=== PATIENT | male | born 1940 | race Caucasian/White ===

== ENCOUNTER 2016-07-26 19:57 | Emergency (ER) | payer OTHER ==
--- NOTE | 2016-07-26 21:37 | DIAGNOSTIC IMAGING REPORT ---
PROCEDURE: XR KNEE 3 VIEWS - LEFT INDICATION: PAIN TECHNIQUE: Three views. COMPARISON: None. FINDINGS: There are mild to moderate degenerative changes and joint space narrowing in the medial compartment and left patellofemoral joint. Osseous structures and joint spaces are otherwise normal. There are moderate calcified atheromatous changes of the left popliteal artery. IMPRESSION: 1. Mild to moderate degenerative changes of the left knee. 2. Moderate calcified atheromatous changes of the left popliteal artery.
--- NOTE | 2016-07-26 21:40 | ED ORDER SUMMARY ---
..... Patient: DIANDRA QURESHI OrderSheet [facility] VisitID: [id number] [address] [place] [address] 76y, M Registration Date/Time: 07/26/2016 ORDER SHEET Weight: 86.1 kg (stated) Allergies: No Known Drug Allergy GENERAL ORDERS: Knee 3V Left Urgent (20:28 07/26/2016 Jarod Hardin verbal order read back to Rachelle Chavez) (Ack 20:36 Navneet) (21:04 Jarrell) MEDICATION ORDERS: Hydrocodone-APAP PO 5/325 mg (NOW, HIGH ALERT MEDICATION) (20:37 07/26/2016 Rachelle Chavez) (Ack 20:44 Jessi Hardin) IV FLUIDS: ORDER SHEET NOTES: [Electronically signed by Nicholas Luque R.N. (21:58 07/26/2016)] [Electronically signed by Rocío Ferrell P.A.-C (23:02 07/26/2016)] [Electronically locked/signed by Nicholas Luque R.N. (21:58 07/26/2016)]
--- NOTE | 2016-07-26 21:40 | ED CLINICAL REPORT ---
Clinical Report - Physicians/Mid Levels [facility] [address] [place] [address] 07/26/2016 19:59 Patient: DIANDRA QURESHI Arrived- By private vehicle. Historian- patient. HISTORY OF PRESENT ILLNESS Chief Complaint: Chief Complaint- Left knee pain. The injury happened 3 days. Patient is experiencing mild pain. Patient denies injury to the head. (Patient with left knee pain over the last 3 days. Patient denies history of DVT. Reports history of gout. He denies any injury history to the area. Patient denies any swelling or erythema. Denies any recent fevers or chills. Pain worsens with movement and activity.). REVIEW OF SYSTEMS The patient complains of pain on weight bearing. All systems otherwise negative, except as recorded above. SOCIAL HISTORY Former smoker. No alcohol use or drug use. PHYSICAL EXAM Appearance: Alert. No acute distress. but apparent distress. Head: Head atraumatic. ENT: Ears normal. Nose normal. Neck: Normal inspection. Respiratory: No respiratory distress. Breath sounds normal. No decreased air movement. Skin: Skin warm. Extremities: Left thigh. No tenderness. Left knee: mild tenderness located in the medial joint line. No swelling, ecchymosis or foreign body. Left leg. No swelling. Neuro, Vascular and Tendons: Vascular status intact. Motor intact. Gait: Limping gait. Neuro: Oriented X 3. LABS, X-RAYS, AND EKG Lt Knee X-ray: (IMPRESSION: 1. Mild to moderate degenerative changes of the left knee. 2. Moderate calcified atheromatous changes of the left popliteal artery. Electronically Final signed by:Kalia Alonzo MD 07/26/2016 9:32:56 PM). PROGRESS AND PROCEDURES Course of Care: There is no warmth or erythema. Patient with no history of trauma. This may represent gout. Patient taking anti-inflammatories, we'll give pain medications as needed, and patient to otherwise follow-up. AAt this time I do not believe this is a DVT, as pain is reproducible and is on the medial aspect, may represent arthritis, in the setting of gouty arthralgia. 07/26/2016 21:53 BP: 131/81. HR: 58. RR: 16. O2 saturation: 97%. Pain level now: 4/10. Patient is stable. Symptoms better. Patient/family counseled. Disposition: Discharged. Condition: good. CLINICAL IMPRESSION Acute arthritis of the right knee. INSTRUCTIONS Apply ice. Elevate affected areas above chest level. You may walk and bear weight as tolerated. Prescription Medications: Hydrocodone/APAP 5mg / 325mg: take 1 orally every 6 hours as needed for pain. Dispense ten (10). No refill. [facility] with: [facility], , [address] [facility] [address] Follow up. Call for the next available appointment. (Electronically signed by Rocío Ferrell P.A.-C 07/26/2016 23:02)
--- NOTE | 2016-07-26 21:40 | ED ORDER SUMMARY ---
..... Patient: DIANDRA QURESHI OrderSheet [facility] VisitID: [id number] [address] [place] [address] 76y, M Registration Date/Time: 07/26/2016 ORDER SHEET Weight: 86.1 kg (stated) Allergies: No Known Drug Allergy GENERAL ORDERS: Knee 3V Left Urgent (20:28 07/26/2016 Jarod Hardin verbal order read back to Rachelle Chavez) (Ack 20:36 Navneet) (21:04 Jarrell) MEDICATION ORDERS: Hydrocodone-APAP PO 5/325 mg (NOW, HIGH ALERT MEDICATION) (20:37 07/26/2016 Rachelle Chavez) (Ack 20:44 Jessi Hardin) IV FLUIDS: ORDER SHEET NOTES: [Electronically signed by Nicholas Luque R.N. (21:58 07/26/2016)] [Electronically signed by Rocío Ferrell P.A.-C (23:02 07/26/2016)] [Electronically locked/signed by Nicholas Luque R.N. (21:58 07/26/2016)]
--- NOTE | 2016-07-26 21:40 | ED NURSING NOTES ---
Clinical Report - Nurses [facility] [address] [place] [address] 07/26/2016 19:59 [id number] Triage time 20:Jul 26 2016. Acuity: LEVEL 3. Chief Complaint: LEFT LOWER EXTREMITY PAIN and SWELLING. Location of symptoms- left knee. Alert. MELO COMA SCORE: [place] Coma Scale: 15- eyes open spontaneously (4); best verbal response- oriented x 4 (5); best motor response- obeys commands (6). --20:25 Nicholas Wilson R.N. 20:09 07/26/16. BP: 165/87. HR: 71. RR: 16. O2 saturation: 98%. Temp: 97.4 F. Pain level now: 06/07. --20:25 Nicholas Wilson R.N. Weight: 86.1 kg stated. Height/Length: 71 inches Per Patient. BMI: 26.5. --20:23 Nicholas Wilson R.N. Medications Isorbide Mononitrate 30 mg. --20:18 Nicholas Wilson R.N. AmLODIPine Besylate Oral. --20:19 Nicholas Wilson R.N. Plavix Oral 75 mg, daily. --20:19 Nicholas Wilson R.N. Atorvastatin Calcium Oral 20 mg. --20:20 Nicholas Wilson R.N. Metoprolol Tartrate Oral 50 mg. --20:21 Nicholas Wilson R.N. Omeprazole Oral 20 mg. --20:21 Nicholas Wilson R.N. Naproxen Oral 500 mg, daily. --20:22 iNcholas Wilson R.N. Allergies No Known Drug Allergy. --20:14 Nicholas Wilson R.N. History Arrived by private vehicle. Historian: patient. Accompanied by friend. Primary physician (Jessica Mccullough). ( (L) Knee Pain. Pt denies any recent trauma to that knee, but states that it had started hurting more in the last two days.). No injury occurred. This occurred (about 3 days ago). Provoking / relieving factors: worsened by sitting; relieved by walking. 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 Symptoms did not improve after treatment. (and took all his usual medications). SOCIAL HX: Former smoker, end date 2001. No alcohol use or drug use. No infectious disease exposure. ABUSE ASSESSMENT: No report of abuse. FALL RISK ASSESSMENT: Fall risk assessment completed. No fall risk identified. NUTRITIONAL RISK ASSESSMENT: The nutritional risk assessment revealed no deficiencies. FUNCTIONAL ASSESSMENT: Functional assessment performed: uses cane- this mobility impairment is an ongoing problem. LEARNING NEEDS ASSESSMENT: (slightly [place]). --20:25 Nicholas Wilson R.N. PROBLEMS: Hypertension. Hypercholesterolemia. CAD. --20:23 Nicholas Wilson R.N. ADDITIONAL SURGERIES: Coronary Stents placed. --20:23 Nicholas Wilson R.N. Interventions ID band on patient. To treatment room. --20:25 Nicholas Wilson R.N. PHYSICAL ASSESSMENT GENERAL / NEURO / PSYCH: Oriented X 4. Alert. EXTREMITIES: Limited ROM present in the left knee. Neuro-vascular status intact to the extremity. No lower extremity edema. Left knee: tenderness and swelling (very tender point on the lateral and distal part of the knee). SKIN: Skin intact. Skin is warm and dry. --20:27 Nicholas Wilson R.N. NURSING PROGRESS NOTES Reassurance given to the patient and patient's friends. Patient identifiers checked. Call light placed in reach. Side rails up x 1. Bed placed in lowest position. Brakes of bed on. Patient ready for evaluation- chart flagged and ED physician notified. --20:28 Nicholas Wilson R.N. 21:55. The patient is calm and resting quietly. GENERAL / NEURO / PSYCH: Alert. Oriented X 4. RESPIRATORY: No respiratory distress. EXTREMITIES: Neuro-vascular status intact to the extremities. SKIN: Skin is warm and dry. --21:58 Nicholas Luque R.N. DISPOSITION / DISCHARGE Departure time: 21:57. Condition at departure: stable. No learning barriers present. Discharge instructions provided and reviewed with the patient. Reviewed medication(s) side effects, precautions, dosing and course information. Prescription(s) given to the patient. Patient verbalized understanding. Written instructions provided in [place]. The patient was discharged home and accompanied by laborer gold leaf. He left the Emergency Department ambulatory and via private vehicle. Grinder Tender driving. FALL RISK ASSESSMENT: Fall risk assessment completed. No fall risk identified. --21:57 Nicholas Luque R.N. 21:53 07/26/16. BP: 131/81. HR: 58. RR: 16. O2 saturation: 97% on room air. Pain level now: 06/07. --21:57 Nicholas Luque R.N. Locked/Released at 07/26/2016 21:58 by Nicholas Luque R.N.
--- NOTE | 2016-07-26 21:40 | ED CLINICAL REPORT ---
Clinical Report - Physicians/Mid Levels [facility] [address] [place] [address] 07/26/2016 19:59 Patient: DIANDRA QURESHI Arrived- By private vehicle. Historian- patient. HISTORY OF PRESENT ILLNESS Chief Complaint: Chief Complaint- Left knee pain. The injury happened 3 days. Patient is experiencing mild pain. Patient denies injury to the head. (Patient with left knee pain over the last 3 days. Patient denies history of DVT. Reports history of gout. He denies any injury history to the area. Patient denies any swelling or erythema. Denies any recent fevers or chills. Pain worsens with movement and activity.). REVIEW OF SYSTEMS The patient complains of pain on weight bearing. All systems otherwise negative, except as recorded above. SOCIAL HISTORY Former smoker. No alcohol use or drug use. PHYSICAL EXAM Appearance: Alert. No acute distress. but apparent distress. Head: Head atraumatic. ENT: Ears normal. Nose normal. Neck: Normal inspection. Respiratory: No respiratory distress. Breath sounds normal. No decreased air movement. Skin: Skin warm. Extremities: Left thigh. No tenderness. Left knee: mild tenderness located in the medial joint line. No swelling, ecchymosis or foreign body. Left leg. No swelling. Neuro, Vascular and Tendons: Vascular status intact. Motor intact. Gait: Limping gait. Neuro: Oriented X 3. LABS, X-RAYS, AND EKG Lt Knee X-ray: (IMPRESSION: 1. Mild to moderate degenerative changes of the left knee. 2. Moderate calcified atheromatous changes of the left popliteal artery. Electronically Final signed by:Kalia Alonzo MD 07/26/2016 9:32:56 PM). PROGRESS AND PROCEDURES Course of Care: There is no warmth or erythema. Patient with no history of trauma. This may represent gout. Patient taking anti-inflammatories, we'll give pain medications as needed, and patient to otherwise follow-up. AAt this time I do not believe this is a DVT, as pain is reproducible and is on the medial aspect, may represent arthritis, in the setting of gouty arthralgia. 07/26/2016 21:53 BP: 131/81. HR: 58. RR: 16. O2 saturation: 97%. Pain level now: 4/10. Patient is stable. Symptoms better. Patient/family counseled. Disposition: Discharged. Condition: good. CLINICAL IMPRESSION Acute arthritis of the right knee. INSTRUCTIONS Apply ice. Elevate affected areas above chest level. You may walk and bear weight as tolerated. Prescription Medications: Hydrocodone/APAP 5mg / 325mg: take 1 orally every 6 hours as needed for pain. Dispense ten (10). No refill. [facility]-up with: [facility], , [address] [facility] [id number] Follow up. Call for the next available appointment. (Electronically signed by Rocío Ferrell P.A.-C 07/26/2016 23:02)
--- NOTE | 2016-07-26 21:40 | ED NURSING NOTES ---
Clinical Report - Nurses [facility] [address] [place] [place] [address] 07/26/2016 19:59 [id number] Triage time 20:Jul 26 2016. Acuity: LEVEL 3. Chief Complaint: LEFT LOWER EXTREMITY PAIN and SWELLING. Location of symptoms- left knee. Alert. MELO COMA SCORE: [place] Coma Scale: 15- eyes open spontaneously (4); best verbal response- oriented x 4 (5); best motor response- obeys commands (6). --20:25 Nicholas Wilson R.N. 20:09 07/26/16. BP: 165/87. HR: 71. RR: 16. O2 saturation: 98%. Temp: 97.4 F. Pain level now: 06/07. --20:25 Nicholas Wilson R.N. Weight: 86.1 kg stated. Height/Length: 71 inches Per Patient. BMI: 26.5. --20:23 Nicholas Wilson R.N. Medications Isorbide Mononitrate 30 mg. --20:18 Nicholas Wilson R.N. AmLODIPine Besylate Oral. --20:19 Nicholas Wilson R.N. Plavix Oral 75 mg, daily. --20:19 Nicholas Wilson R.N. Atorvastatin Calcium Oral 20 mg. --20:20 Nicholas Wilson R.N. Metoprolol Tartrate Oral 50 mg. --20:21 Nicholas Wilson R.N. Omeprazole Oral 20 mg. --20:21 Nicholas Wilson R.N. Naproxen Oral 500 mg, daily. --20:22 Nicholas Wilson R.N. Allergies No Known Drug Allergy. --20:14 Nicholas Wilson R.N. History Arrived by private vehicle. Historian: patient. Accompanied by friend. Primary physician (Jessica Mccullough). ( (L) Knee Pain. Pt denies any recent trauma to that knee, but states that it had started hurting more in the last two days.). No injury occurred. This occurred (about 3 days ago). Provoking / relieving factors: worsened by sitting; relieved by walking. 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 Symptoms did not improve after treatment. (and took all his usual medications). SOCIAL HX: Former smoker, end date 2001. No alcohol use or drug use. No infectious disease exposure. ABUSE ASSESSMENT: No report of abuse. FALL RISK ASSESSMENT: Fall risk assessment completed. No fall risk identified. NUTRITIONAL RISK ASSESSMENT: The nutritional risk assessment revealed no deficiencies. FUNCTIONAL ASSESSMENT: Functional assessment performed: uses cane- this mobility impairment is an ongoing problem. LEARNING NEEDS ASSESSMENT: (slightly [place]). --20:25 Nicholas Wilson R.N. PROBLEMS: Hypertension. Hypercholesterolemia. CAD. --20:23 Nicholas Wilson R.N. ADDITIONAL SURGERIES: Coronary Stents placed. --20:23 Nicholas Wilson R.N. Interventions ID band on patient. To treatment room. --20:25 Nicholas Wilson R.N. PHYSICAL ASSESSMENT GENERAL / NEURO / PSYCH: Oriented X 4. Alert. EXTREMITIES: Limited ROM present in the left knee. Neuro-vascular status intact to the extremity. No lower extremity edema. Left knee: tenderness and swelling (very tender point on the lateral and distal part of the knee). SKIN: Skin intact. Skin is warm and dry. --20:27 Nicholas Wilson R.N. NURSING PROGRESS NOTES Reassurance given to the patient and patient's friends. Patient identifiers checked. Call light placed in reach. Side rails up x 1. Bed placed in lowest position. Brakes of bed on. Patient ready for evaluation- chart flagged and ED physician notified. --20:28 Nicholas Wilson R.N. 21:55. The patient is calm and resting quietly. GENERAL / NEURO / PSYCH: Alert. Oriented X 4. RESPIRATORY: No respiratory distress. EXTREMITIES: Neuro-vascular status intact to the extremities. SKIN: Skin is warm and dry. --21:58 Nicholas Luque R.N. DISPOSITION / DISCHARGE Departure time: 21:57. Condition at departure: stable. No learning barriers present. Discharge instructions provided and reviewed with the patient. Reviewed medication(s) side effects, precautions, dosing and course information. Prescription(s) given to the patient. Patient verbalized understanding. Written instructions provided in [place]. The patient was discharged home and accompanied by urology physician. He left the Emergency Department ambulatory and via private vehicle. Care Worker driving. FALL RISK ASSESSMENT: Fall risk assessment completed. No fall risk identified. --21:57 Nicholas Luque R.N. 21:53 07/26/16. BP: 131/81. HR: 58. RR: 16. O2 saturation: 97% on room air. Pain level now: 06/07. --21:57 Nicholas Luque R.N. Locked/Released at 07/26/2016 21:58 by Nicholas Luque R.N.
--- NOTE | 2016-07-26 23:02 | ED MED RECONCILIATION SUMMARY ---
Patient: DIANDRA QURESHI Medication Reconciliation Report [facility] VisitID: [id number] [address] [place] [address] 76y, M Registration Date/Time: 07/26/2016 Weight: 86.1 kg Height/Length: 71 in. BMI: 26.5 ALLERGIES: No Known Drug Allergy The patient's Home Medications are listed below: THE FOLLOWING MEDICATIONS NEED TO BE RECONCILED: AmLODIPine Besylate Oral Atorvastatin Calcium Oral 20 mg Isorbide Mononitrate 30 mg Metoprolol Tartrate Oral 50 mg Naproxen Oral 500 mg, daily Omeprazole Oral 20 mg Plavix Oral 75 mg, daily The source(s) of the original Home Medication information: Not obtained. The following Medications were given to the patient in the Emergency Department: Hydrocodone-APAP [PO] PO 1 tab, administered: 07/26/2016 8:55:00 PM The following Medications were prescribed to the patient: Hydrocodone/APAP 5mg / 325mg: take 1 orally every 6 hours as needed for pain. Dispense ten (10). No refill. -- Rocío Ferrell PMiguelangelALubaC
--- NOTE | 2016-07-26 23:02 | ED MED RECONCILIATION SUMMARY ---
Patient: DIANDRA QURESHI Medication Reconciliation Report [facility] VisitID: [id number] [address] [place] [address] 76y, M Registration Date/Time: 07/26/2016 Weight: 86.1 kg Height/Length: 71 in. BMI: 26.5 ALLERGIES: No Known Drug Allergy The patient's Home Medications are listed below: THE FOLLOWING MEDICATIONS NEED TO BE RECONCILED: AmLODIPine Besylate Oral Atorvastatin Calcium Oral 20 mg Isorbide Mononitrate 30 mg Metoprolol Tartrate Oral 50 mg Naproxen Oral 500 mg, daily Omeprazole Oral 20 mg Plavix Oral 75 mg, daily The source(s) of the original Home Medication information: Not obtained. The following Medications were given to the patient in the Emergency Department: Hydrocodone-APAP [PO] PO 1 tab, administered: 07/26/2016 8:55:00 PM The following Medications were prescribed to the patient: Hydrocodone/APAP 5mg / 325mg: take 1 orally every 6 hours as needed for pain. Dispense ten (10). No refill. -- Rocío Ferrell PMiguelangelALubaC
--- NOTE | 2016-07-26 23:02 | ED DISCHARGE INSTRUCTIONS ---
Patient: DIANDRA QURESHI General Instructions [facility] VisitID: [id number] [address] [place], [place] [id number] 76y, M Registration Date/Time: 07/26/2016 Acute arthritis of the right knee. INSTRUCTIONS Apply ice. Elevate affected areas above chest level. You may walk and bear weight as tolerated. Prescription Medications: Hydrocodone/APAP 5mg / 325mg: take 1 orally every 6 hours as needed for pain. Dispense ten (10). No refill. Follow-up with: [facility], , [address], [place], [id number] Follow up. Call for the next available appointment. ADDITIONAL INFORMATION Arthralgia Arthralgia is the term for pain in or around the joint. It is not a disease but a symptom. This may involve one or more joints. Sometimes arthralgias move from joint to joint. There are many causes for joint pain. These include: Injury Osteoarthritis (from wearing out of the joint surface) Rheumatoid arthritis (an autoimmune disease) Gout (inflammation of the joint due to crystals in the joint fluid) Infection inside the joint Bursitis (inflammation of the fluid-filled sacs around the joint) Lupus and other collagen-vascular disease Home Care: Rest the involved joint(s) until your symptoms improve. You may use acetaminophen (Tylenol) or ibuprofen (Motrin, Advil) to control pain, unless another pain medicine was prescribed. [NOTE: If you have chronic liver or kidney disease or ever had a stomach ulcer or GI bleeding, talk with your doctor before using these medicines.] Follow Up with your doctor or as advised by our staff. [NOTE: If you had an X-ray it will be reviewed by a specialist. You will be notified of any new findings that may affect your care.] Return Promptly or contact your doctor if any of the following occurs: Pain increases Pain moves to other joints New rash appears Fever of 100.4F (38C) or higher, or as directed by your healthcare provider Hydrocodone Bitartrate, Acetaminophen Oral tablet What is this medicine? ACETAMINOPHEN; HYDROCODONE (a set a SRIKANTH laine fen; roly droe KOE done) is a pain reliever. It is used to treat mild to moderate pain. How should I use this medicine? Take this medicine by mouth. Swallow it with a full glass of water. Follow the directions on the prescription label. If the medicine upsets your stomach, take the medicine with food or milk. Do not take more than you are told to take. Talk to your mule spinner regarding the use of this medicine in children. This medicine is not approved for use in children. What side effects may I notice from receiving this medicine? Side effects that you should report to your doctor or health customer care manager as soon as possible: allergic reactions like skin rash, itching or hives, swelling of the face, lips, or tongue breathing problems confusion feeling faint or lightheaded, falls stomach pain yellowing of the eyes or skin Side effects that usually do not require medical attention (report to your doctor or health customer care manager if they continue or are bothersome): nausea, vomiting stomach upset What may interact with this medicine? alcohol antihistamines isoniazid medicines for depression, anxiety, or psychotic disturbances medicines for sleep muscle relaxants naltrexone narcotic medicines (opiates) for pain phenobarbital ritonavir tramadol What if I miss a dose? If you miss a dose, take it as soon as you can. If it is almost time for your next dose, take only that dose. Do not take double or extra doses. Where should I keep my medicine? Keep out of the reach of children. This medicine can be abused. Keep your medicine in a safe place to protect it from theft. Do not share this medicine with anyone. Selling or giving away this medicine is dangerous and against the law. Store at room temperature between 15 and 30 degrees C (59 and 86 degrees F). Protect from light. Keep container tightly closed. Throw away any unused medicine after the expiration date. Discard unused medicine and used packaging carefully. Pets and children can be harmed if they find used or lost packages. What should I tell my health care provider before I take this medicine? They need to know if you have any of these conditions: brain tumor Crohn's disease, inflammatory bowel disease, or ulcerative colitis drink more than 3 alcohol-containing drinks per day drug abuse or addiction head injury heart or circulation problems kidney disease or problems going to the bathroom liver disease lung disease, asthma, or breathing problems an unusual or allergic reaction to acetaminophen, hydrocodone, other opioid analgesics, other medicines, foods, dyes, or preservatives or trying to get breast-feeding What should I watch for while using this medicine? Tell your doctor or health customer care manager if your pain does not go away, if it gets worse, or if you have new or a different type of pain. You may develop tolerance to the medicine. Tolerance means that you will need a higher dose of the medicine for pain relief. Tolerance is normal and is expected if you take the medicine for a long time. Do not suddenly stop taking your medicine because you may develop a severe reaction. Your body becomes used to the medicine. This does NOT mean you are addicted. Addiction is a behavior related to getting and using a drug for a non-medical reason. If you have pain, you have a medical reason to take pain medicine. Your doctor will tell you how much medicine to take. If your doctor wants you to stop the medicine, the dose will be slowly lowered over time to avoid any side effects. You may get drowsy or dizzy when you first start taking the medicine or change doses. Do not drive, use machinery, or do anything that may be dangerous until you know how the medicine affects you. Stand or sit up slowly. There are different types of narcotic medicines (opiates) for pain. If you take more than one type at the same time, you may have more side effects. Give your health care provider a list of all medicines you use. Your doctor will tell you how much medicine to take. Do not take more medicine than directed. Call emergency for help if you have problems breathing. The medicine will cause constipation. Try to have a bowel movement at least every 2 to 3 days. If you do not have a bowel movement for 3 days, call your doctor or health customer care manager. Too much acetaminophen can be very dangerous. Do not take Tylenol (acetaminophen) or medicines that contain acetaminophen with this medicine. Many non-prescription medicines contain acetaminophen. Always read the labels carefully. You have been given the following additional information: Arthralgia Hydrocodone Bitartrate, Acetaminophen Oral tablet You may walk and bear weight as tolerated. (Electronically signed by Rocío Ferrell P.A.-C 07/26/2016 23:02)
--- NOTE | 2016-07-26 23:02 | ED MAR SUMMARY ---
..... Medication Administration Record [facility] [address] [place] [address] Patient: DIANDRA QURESHI Visit ID: [id number] 76y, M Weight: 86.1 kg Height/Length: 71 in BMI: 26.5 ALLERGIES: No Known Drug Allergy Given 20:55 07/26/2016 Nicholas Luque R.N. Medication Administered: HYDROCODONE-APAP [PO] (HYDROCODONE-ACETAMINOPHEN), Dose: 1 tab 5/325 mg Tablets PO. Medication Ordered: Hydrocodone-APAP PO 5/325 mg (NOW, HIGH ALERT MEDICATION).
--- NOTE | 2016-07-26 23:02 | ED DISCHARGE INSTRUCTIONS ---
Patient: DIANDRA QURESHI General Instructions [facility] VisitID: [id number] [address] [place], [place] [id number] 76y, M Registration Date/Time: 07/26/2016 Acute arthritis of the right knee. INSTRUCTIONS Apply ice. Elevate affected areas above chest level. You may walk and bear weight as tolerated. Prescription Medications: Hydrocodone/APAP 5mg / 325mg: take 1 orally every 6 hours as needed for pain. Dispense ten (10). No refill. Follow-up with: [facility], , [address], [place], [address] Follow up. Call for the next available appointment. ADDITIONAL INFORMATION Arthralgia Arthralgia is the term for pain in or around the joint. It is not a disease but a symptom. This may involve one or more joints. Sometimes arthralgias move from joint to joint. There are many causes for joint pain. These include: Injury Osteoarthritis (from wearing out of the joint surface) Rheumatoid arthritis (an autoimmune disease) Gout (inflammation of the joint due to crystals in the joint fluid) Infection inside the joint Bursitis (inflammation of the fluid-filled sacs around the joint) Lupus and other collagen-vascular disease Home Care: Rest the involved joint(s) until your symptoms improve. You may use acetaminophen (Tylenol) or ibuprofen (Motrin, Advil) to control pain, unless another pain medicine was prescribed. [NOTE: If you have chronic liver or kidney disease or ever had a stomach ulcer or GI bleeding, talk with your doctor before using these medicines.] Follow Up with your doctor or as advised by our staff. [NOTE: If you had an X-ray it will be reviewed by a specialist. You will be notified of any new findings that may affect your care.] Return Promptly or contact your doctor if any of the following occurs: Pain increases Pain moves to other joints New rash appears Fever of 100.4F (38C) or higher, or as directed by your healthcare provider Hydrocodone Bitartrate, Acetaminophen Oral tablet What is this medicine? ACETAMINOPHEN; HYDROCODONE (a set a SRIKANTH laine fen; roly droe KOE done) is a pain reliever. It is used to treat mild to moderate pain. How should I use this medicine? Take this medicine by mouth. Swallow it with a full glass of water. Follow the directions on the prescription label. If the medicine upsets your stomach, take the medicine with food or milk. Do not take more than you are told to take. Talk to your [facility] assisted living regarding the use of this medicine in children. This medicine is not approved for use in children. What side effects may I notice from receiving this medicine? Side effects that you should report to your doctor or health healthcare administration intern as soon as possible: allergic reactions like skin rash, itching or hives, swelling of the face, lips, or tongue breathing problems confusion feeling faint or lightheaded, falls stomach pain yellowing of the eyes or skin Side effects that usually do not require medical attention (report to your doctor or health healthcare administration intern if they continue or are bothersome): nausea, vomiting stomach upset What may interact with this medicine? alcohol antihistamines isoniazid medicines for depression, anxiety, or psychotic disturbances medicines for sleep muscle relaxants naltrexone narcotic medicines (opiates) for pain phenobarbital ritonavir tramadol What if I miss a dose? If you miss a dose, take it as soon as you can. If it is almost time for your next dose, take only that dose. Do not take double or extra doses. Where should I keep my medicine? Keep out of the reach of children. This medicine can be abused. Keep your medicine in a safe place to protect it from theft. Do not share this medicine with anyone. Selling or giving away this medicine is dangerous and against the law. Store at room temperature between 15 and 30 degrees C (59 and 86 degrees F). Protect from light. Keep container tightly closed. Throw away any unused medicine after the expiration date. Discard unused medicine and used packaging carefully. Pets and children can be harmed if they find used or lost packages. What should I tell my health care provider before I take this medicine? They need to know if you have any of these conditions: brain tumor Crohn's disease, inflammatory bowel disease, or ulcerative colitis drink more than 3 alcohol-containing drinks per day drug abuse or addiction head injury heart or circulation problems kidney disease or problems going to the bathroom liver disease lung disease, asthma, or breathing problems an unusual or allergic reaction to acetaminophen, hydrocodone, other opioid analgesics, other medicines, foods, dyes, or preservatives or trying to get breast-feeding What should I watch for while using this medicine? Tell your doctor or health healthcare administration intern if your pain does not go away, if it gets worse, or if you have new or a different type of pain. You may develop tolerance to the medicine. Tolerance means that you will need a higher dose of the medicine for pain relief. Tolerance is normal and is expected if you take the medicine for a long time. Do not suddenly stop taking your medicine because you may develop a severe reaction. Your body becomes used to the medicine. This does NOT mean you are addicted. Addiction is a behavior related to getting and using a drug for a non-medical reason. If you have pain, you have a medical reason to take pain medicine. Your doctor will tell you how much medicine to take. If your doctor wants you to stop the medicine, the dose will be slowly lowered over time to avoid any side effects. You may get drowsy or dizzy when you first start taking the medicine or change doses. Do not drive, use machinery, or do anything that may be dangerous until you know how the medicine affects you. Stand or sit up slowly. There are different types of narcotic medicines (opiates) for pain. If you take more than one type at the same time, you may have more side effects. Give your health care provider a list of all medicines you use. Your doctor will tell you how much medicine to take. Do not take more medicine than directed. Call emergency for help if you have problems breathing. The medicine will cause constipation. Try to have a bowel movement at least every 2 to 3 days. If you do not have a bowel movement for 3 days, call your doctor or health healthcare administration intern. Too much acetaminophen can be very dangerous. Do not take Tylenol (acetaminophen) or medicines that contain acetaminophen with this medicine. Many non-prescription medicines contain acetaminophen. Always read the labels carefully. You have been given the following additional information: Arthralgia Hydrocodone Bitartrate, Acetaminophen Oral tablet You may walk and bear weight as tolerated. (Electronically signed by Rocío Ferrell P.A.-C 07/26/2016 23:02)
--- NOTE | 2016-07-26 23:02 | ED MAR SUMMARY ---
..... Medication Administration Record [facility] [address] [place] [address] Patient: DIANDRA QURESHI Visit ID: [id number] 76y, M Weight: 86.1 kg Height/Length: 71 in BMI: 26.5 ALLERGIES: No Known Drug Allergy Given 20:55 07/26/2016 Nicholas Luque R.N. Medication Administered: HYDROCODONE-APAP [PO] (HYDROCODONE-ACETAMINOPHEN), Dose: 1 tab 5/325 mg Tablets PO. Medication Ordered: Hydrocodone-APAP PO 5/325 mg (NOW, HIGH ALERT MEDICATION).
== END 2016-07-26 21:57 | disposition home or self-care (01) ==
LOC: ED SRH 19:57
DX: M17.11 Unilateral primary osteoarthritis, right knee (principal); E78.00 Pure hypercholesterolemia, unspecified; I10 Essential (primary) hypertension; Z79.899 Other long term (current) drug therapy; Z87.891 Personal history of nicotine dependence